=== PATIENT | male | born 1955 | race Caucasian/White ===

== ENCOUNTER 2023-09-03 13:07 | Outpatient (CLI) | payer MEDICARE, OTHER ==
--- NOTE | 2023-09-03 13:56 | Sleep Patient Instructions ---
Sleep Center Visit Summary - Patient Visit Information Reason for Visit: Initial consultation - Patient Instructions Additional Instructions: You will continue with BIPAP therapy with pressure set at 24/14 cmH2O. A prescription to update your BIPAP and supplies has been completed. Please call to set up followup appointment once you have your new BIPAP. We encourage you to continue to try to lose weight. Please follow up with the sleep care office one month after obtaining new device. - Clinic Information Contact: [facility] [address] [place] [address] [email or web address] T: [phone]
--- NOTE | 2023-09-03 14:07 | SLEEP CARE CONSULTATION ---
Information from patient questionnaire entered by Babs Hernandez. I have reviewed and concur with the information entered by Babs Hernandez. This document represents the service I personally performed and the decisions made by me, Georgina Pickett ARNP. History of Present Illness Service Date and Time: 09/03/2023 1307 Reason for Visit: New patient, Previously diagnosed sleep apnea Chief Complaint: reports: Unrefreshed sleep, Excessive daytime sleepiness, Other (UPDATE SUPPLIES) Usual bedtime: 11-1130PM Time it takes to fall asleep: 10MINS Snores at night: Yes Sleeps alone due to snoring: Yes Number of times waking at night: 1-2 Reasons for waking at night: reports: Bathroom Toss, Turn, or Twitch while sleeping: Yes Recalls having dreams: Yes Usually gets out of bed at: 730-8AM Feels refreshed in the morning: No Morning headache: No Sleepy or fatigued during the day: Yes Ever fallen asleep while driving: No Takes day naps: Yes Dreams during day naps: No Prior sleep studies: Yes ([facility]) Additional HPI information: JOSE ALMONTE was previously diagnosed to have extremely severe, AHI 103.2, obstructive sleep apnea-hypopnea syndrome diagnosed in sleep study dated 10/28/2006 at [facility] and comes in today to establish care for BIPAP therapy. - Parasomnia Symptoms Ever been unable to move upon waking from sleep: No Walks in sleep: No Talks in sleep: No Ever acted out dreams in sleep: No Ever felt weak in the knees when startled or emotional: No Bothered by creepy, crawly, restless sensations in legs: Yes Problems with memory or concentration: No CPAP Compliance Data Compliance data discussion: He has a Wong BIPAP. He gets his supplies through [facility]. He is using a nasal pillows mask, Dreamwear, with medium cushion. He also uses a chin strap to reduce oral dryness. Subjective Patient concerns: denies: aerophagia, mask discomfort, air blowing in eyes, mask leak noise, condensation in mask/hose, nasal congestion, dry mouth, nose, throat, epistaxis Observed to snore while using device: No Current pressure setting perceived as: comfortable On therapy, patient: reports: sleeping better, awakening more refreshed, being more awake and alert during the day, more rested overall. denies: drowsiness while driving Initial [place] Sleepiness Scale score: 13 (08/11/23) Past Medical History Past Medical History: reports: Hypertension, Diabetes, Arthritis, Insulin resistance, Impotence, GERD, Other (polymialga rheumatica (EMR)) Social History The patient's occupation is a RE. Patient is and lives in [place]. Have you smoked in the past 12 months: No Cigarettes per day (20/pack): 30 Years of smokin Quit date: 2004 Smoking Pack Years: 46.5 Alcohol use: Yes Alcohol amount and frequency: 1-2OZ A MONTH Caffeine use: Yes Caffeine amount and frequency: 2 CUPS IN MORNINGS Family History Family history of sleep disordered breathing: Yes Family Hx Sleep Apnea: Father: Snoring, Sleep apnea - Untreated Allergies and Home Medications Known drug allergies: No Drug allergies reviewed: Yes Home medication list reviewed: Yes Allergy and home medication list: Home Medications Medication Instructions Recorded Confirmed Last Taken Type Amlodipine Besylate [Norvasc] See Rx Instructions .ROUTE .COMPLEX 09/03/23 09/03/23 Unknown History Aspirin [Aspirin EC] See Rx Instructions .ROUTE .COMPLEX 09/03/23 09/03/23 Unknown History Carisoprodol [Soma] See Rx Instructions .ROUTE .COMPLEX 09/03/23 09/03/23 Unknown History Insulin Glargine [Lantus Solostar] See Rx Instructions .ROUTE .COMPLEX 09/03/23 09/03/23 Unknown History Metformin HCl [Metformin ER See Rx Instructions .ROUTE .COMPLEX 09/03/23 09/03/23 Unknown History Gastric] Omeprazole Magnesium See Rx Instructions .ROUTE .COMPLEX 09/03/23 09/03/23 Unknown History Prednisone [Major] See Rx Instructions .ROUTE .COMPLEX 09/03/23 09/03/23 Unknown History Rosuvastatin Calcium See Rx Instructions .ROUTE .COMPLEX 09/03/23 09/03/23 Unkn own History Semaglutide [Ozempic] See Rx Instructions .ROUTE .COMPLEX 09/03/23 09/03/23 Unknown History Triamterene/Hydrochlorothiazid See Rx Instructions .ROUTE .COMPLEX 09/03/23 09/03/23 Unknown History [Triamterene-Hctz 37.5-25 mg Cp] carvediloL [Coreg] See Rx Instructions .ROUTE .COMPLEX 09/03/23 09/03/23 Unknown History metFORMIN [Glucophage] See Rx Instructions .ROUTE .COMPLEX 09/03/23 09/03/23 Unknown History Review of Systems Weight loss over past 5 years: 24 Cardiovascular: reports: high blood pressure, leg or foot swelling Gastrointestinal: reports: heartburn Urinary: reports: frequency, impotence Neurological: reports: gait or balance problems Ear/Nose/Throat: reports: sinus problems, dry mouth/throat, tonsillectomy Endocrine: reports: sluggishness, unexplained weakness Musculoskeletal: reports: joint pain, back pain Immunologic: reports: sneezing Physical Exam Vital signs obtained and entered by: BABS Segura MA Blood Pressure: 132/84 (LEFT ARM) Cuff size: long Heart Rate: 86 O2 Saturation: 97 Height: 5 ft 4 in Weight: 223 lb Body Mass Index: 38.2 BMI Classification: Obese Neck circumference: 19.5 Mouth and throat: narrow oropharynx Soft palate: long Hard palate: normal Uvula: normal Uvula visualization: 0% Mallampati Class IV Tongue: enlarged in size with teeth figueroa on lateral edges Tonsils: absent bilaterally Heart: regular rate and rhythm Lungs: clear bilaterally Impression and Plan 1. Obstructive Sleep Apnea-Hypopnea Syndrome, extremely severe, with unknown treatment compliance and unknown apnea control. On BIPAP therapy, the patient has better sleep quality and is more rested overall. He states he uses it every night. We were unable to get his data from the SD card. He has not had his data checked in a long time. He has been buying his supplies as needed online. He is eligible for a new device since his Wong was issued to him in 2011. I will set him up with a new DME to obtain a new device and supplies as needed. He agreed. I will have my loss prevention coordinator inform of DME options. A DWO prescription will then be made. Patient advised to contact this office if further supply problems. Patient's apnea severity and rationale for treatment to reduce apnea, improve sleep quality and reduce cardiovascular and cerebrovascular events was reviewed. I also reviewed the benefit of consistent device use of BIPAP for hypertension, diabetes and gastric reflux. 2. Obesity, unspecified. Currently patients BMI is 38.2. Obesity increases the risk of apnea, BIPAP pressure requirements and overall health risks especially cardiovascular and diabetes. Thus patient is advised to lose weight. * Continue BIPAP pressure at 24/14 cmH2O with 4 cmH2O pressure support * Transfer DME * Update machine * Update supply prescription * Notify me if snoring with mask or feeling that the pressure is too much or too little * Attempt to lose weight * Call this office if any problems using BIPAP * Return for follow up one month after obtaining new device, or sooner if con cerns arise Counseling Topics: Weight loss health impact Prescriptions: Auto CPAP, Device supplies Visit Type: In Office Time Spent with Patient (minutes): 38 Provider Statement: I spent 100% of the Face to Face Visit with the patient with greater than 50% spent counseling the patient and coordination of care.
[2023-09-03 15:06] VITALS: BP 132/84; O2SAT 97
== END 2023-09-03 13:08 | disposition home or self-care (01) ==
LOC: SC 13:07
PROVIDERS: ATTEND Nurse Practitioner Family
DX: G47.33 Obstructive sleep apnea (adult) (pediatric) (principal); E66.9 Obesity, unspecified; Z68.38 Body mass index [BMI] 38.0-38.9, adult; Z87.891 Personal history of nicotine dependence
CPT/HCPCS: 99203; G0463; 99212